=== PATIENT | male | born 1975 | race Caucasian/White ===

== ENCOUNTER 2019-06-13 11:30 | Emergency (ER) | payer OTHER ==
[2019-06-13] MEDS ORDERED: Sodium Chloride 0.9% 1,000 ML IV ONE (12:11)
[2019-06-13] MEDS ORDERED: MVI, Adult with Vitamin K 10 ML, Thiamine 100 MG, Folic Acid 1 MG, Magnesium Sulfate 3 ... IV ONE ×5 (12:12)
[2019-06-13] MEDS ORDERED: Ondansetron 4 MG/2 ML SDV IVPUSH ONE (12:15)
--- NOTE | 2019-06-13 15:35 | EDM.PDOCBH ---
ED HPI GENERAL MEDICAL PROBLEM - General Chief Complaint: Drug or Alcohol Abuse Stated Complaint: VIA [facility] AM Time Seen by Provider: 06/13/19 12:06 Source of Information: Reports: Patient History Limitations: Reports: No Limitations - History of Present Illness INITIAL COMMENTS - FREE TEXT/NARRATIVE: This patient comes in because he has been drinking heavily for the past 4 days and is been vomiting several times today. He's been to alcohol rehabilitation the last time was 4 years ago and he was actually sober until just very recently when he started drinking again. He would like to go back to detox and maybe to rehabilitation. - Related Data Allergies Allergy/AdvReac Type Severity Reaction Status Date / Time No Known Allergies Allergy Verified 06/13/19 11:42 Home Meds: Home Meds NK [No Known Home Meds] 06/13/19 [History] Past Medical History Musculoskeletal History: Reports: Fracture Psychiatric History: Reports: Addiction Other Psychiatric History: Has been through ETOH treatment x 2 - Past Surgical History GI Surgical History: Reports: EGD, Other (See Below) Other GI Surgeries/Procedures: Ulcer Social & Family History - Tobacco Use Smoking Status *Q: Current Every Day Smoker Years of Tobacco use: 12 Packs/Tins Daily: 0.5 - Recreational Drug Use Recreational Drug Use: Yes Recreational Drug Type: Reports: Methamphetamine Other Recreational Drug Type: had last this morning around 0300 ED ROS GENERAL - Review of Systems Review Of Systems: ROS reveals no pertinent complaints other than HPI. ED EXAM, BEHAVIORAL HEALTH - Physical Exam Exam: See Below Exam Limited By: No Limitations General Appearance: Alert, WD/WN, Mild Distress Eye Exam: Bilateral Eye: Normal Inspection Ears: Normal External Exam Throat/Mouth: Normal Oropharynx Head: Atraumatic Neck: Normal Inspection Respiratory/Chest: Lungs Clear Cardiovascular: Normal Peripheral Pulses, Regular Rate, Rhythm GI/Abdominal: Non-Tender Back Exam: Normal Inspection Extremities: Normal Inspection Neurological: Alert Psychiatric: Alert Skin Exam: Warm, Dry COURSE, BEHAVIORAL HEALTH COMP - Course Vital Signs: Last Vital Signs Temp 35.3 C 06/13/19 11:48 Pulse 75 06/13/19 13:52 Resp 16 06/13/19 13:52 BP 140/89 06/13/19 13:52 Pulse Ox 96 06/13/19 13:52 Orders, Labs, Meds: Laboratory Tests 06/13/19 06/13/19 06/13/19 Range/Units 12:17 12:17 12:17 WBC 13.8 H (4.5-11.0) K/uL RBC 5.09 (4.30-5.90) M/uL Hgb 15.3 H (12.0-15.0) g/dL Hct 46.0 (40.0-54.0) % MCV 90 (80-98) fL MCH 30 (27-31) pg MCHC 33 (32-36) % Plt Count 240 (150-400) K/uL Neut % (Auto) 84 H (36-66) % Lymph % (Auto) 8 L (24-44) % Wright % (Auto) 6 (2-6) % Eos % (Auto) 1 L (2-4) % Baso % (Auto) 0 (0-1) % Sodium 141 (140-148) mmol/L Potassium 3.8 (3.6-5.2) mmol/L Chloride 102 (100-108) mmol/L Carbon Dioxide 26 (21-32) mmol/L Anion Gap 13.5 (5.0-14.0) mmol/L BUN 9 (7-18) mg/dL Creatinine 1.0 (0.8-1.3) mg/dL Est Cr Clr Drug Dosing 111.88 mL/min Estimated GFR (MDRD) > 60 (>60) Glucose 110 H (74-106) mg/dL Calcium 8.6 (8.5-10.1) mg/dL Total Bilirubin 0.9 (0.2-1.0) mg/dL AST 28 (15-37) U/L ALT 60 (12-78) U/L Alkaline Phosphatase 107 (46-116) U/L Total Protein 7.3 (6.4-8.2) g/dL Albumin 3.9 (3.4-5.0) g/dL Globulin 3.4 (2.3-3.5) g/dL Albumin/Globulin Ratio 1.1 L (1.2-2.2) Urine Opiates Screen (NEGATIVE) Ur Oxycodone Screen (NEGATIVE) Urine Methadone Screen (NEGATIVE) Ur Propoxyphene Screen (NEGATIVE) Ur Barbiturates Screen (NEGATIVE) Ur Tricyclics Screen (NEGATIVE) Ur Phencyclidine Scrn (NEGATIVE) Ur Amphetamine Screen (NEGATIVE) U Methamphetamines Scrn (NEGATIVE) Urine MDMA Screen (NEGATIVE) U Benzodiazepines Scrn (NEGATIVE) U Cocaine Metab Screen (NEGATIVE) U Marijuana (THC) Screen (NEGATIVE) Ethyl Alcohol < 3 mg/dL 06/13/19 Range/Units 13:52 WBC (4.5-11.0) K/uL RBC (4.30-5.90) M/uL Hgb (12.0-15.0) g/dL Hct (40.0-54.0) % MCV (80-98) fL MCH (27-31) pg MCHC (32-36) % Plt Count (150-400) K/uL Neut % (Auto) (36-66) % Lymph % (Auto) (24-44) % Wright % (Auto) (2-6) % Eos % (Auto) (2-4) % Baso % (Auto) (0-1) % Sodium (140-148) mmol/L Potassium (3.6-5.2) mmol/L Chloride (100-108) mmol/L Carbon Dioxide (21-32) mmol/L Anion Gap (5.0-14.0) mmol/L BUN (7-18) mg/dL Creatinine (0.8-1.3) mg/dL Est Cr Clr Drug Dosing mL/min Estimated GFR (MDRD) (>60) Glucose (74-106) mg/dL Calcium (8.5-10.1) mg/dL Total Bilirubin (0.2-1.0) mg/dL AST (15-37) U/L ALT (12-78) U/L Alkaline Phosphatase (46-116) U/L Total Protein (6.4-8.2) g/dL Albumin (3.4-5.0) g/dL Globulin (2.3-3.5) g/dL Albumin/Globulin Ratio (1.2-2.2) Urine Opiates Screen Negative (NEGATIVE) Ur Oxycodone Screen Negative (NEGATIVE) Urine Methadone Screen Negative (NEGATIVE) Ur Propoxyphene Screen Negative (NEGATIVE) Ur Barbiturates Screen Negative (NEGATIVE) Ur Tricyclics Screen Negative (NEGATIVE) Ur Phencyclidine Scrn Negative (NEGATIVE) Ur Amphetamine Screen Negative (NEGATIVE) U Methamphetamines Scrn Presumptive positive H (NEGATIVE) Urine MDMA Screen Negative (NEGATIVE) U Benzodiazepines Scrn Negative (NEGATIVE) U Cocaine Metab Screen Negative (NEGATIVE) U Marijuana (THC) Screen Negative (NEGATIVE) Ethyl Alcohol mg/dL Medications Discontinued Medications Generic Name Dose Route Start Last Admin Trade Name Eve PRN Reason Stop Dose Admin Multivitamins/Minerals 10 ml/ 1,017.2 mls @ 999 mls/hr 06/13/19 12:12 12:43 Thiamine HCl 100 mg/ Folic IV 06/13/19 13:13 999 mls/hr Acid 1 mg/ Magnesium Sulfate 3 ONETIME ONE Administration gm/ Sodium Chloride Sodium Chloride 1,000 mls @ 999 mls/hr 06/13/19 12:11 06/13/19 12:39 Normal Saline IV 06/13/19 13:11 999 mls/hr .BOLUS ONE Administration Ondansetron HCl 4 mg 06/13/19 12:15 06/13/19 12:45 Zofran IVPUSH 06/13/19 12:16 4 mg ONETIME ONE Administration Re-Assessment/Re-Exam: This patient received a banana bag and when liter of IV normal saline. He also received some IV Zofran. At time of discharge he feels much better. He is medically cleared for detox and he will be going to [facility] very shortly Departure - Departure Time of Disposition: 15:34 Disposition: DC/Tfer to Other Condition: Fair Clinical Impression: Alcohol abuse - Discharge Information Referrals: PCP,None [Primary Care Provider] - Additional Instructions: This patient is medically cleared for admission to [facility] for alcohol detox
== END 2019-06-13 16:36 | disposition other institution (70) ==
LOC: JP.ED 11:30
DX: F10.10 Alcohol abuse, uncomplicated (principal); Y90.0 Blood alcohol level of less than 20 mg/100 ml; F17.210 Nicotine dependence, cigarettes, uncomplicated
CPT/HCPCS: 36415; 80053; 80305; 85025; 96365; 96375; 99284; G0480; J2405; J3411; J3475; J7030; J3490

== ENCOUNTER 2023-05-07 07:34 | Day surgery (SDC) | payer MEDICAID ==
[~2023-05-07 07:34] MED LIST: Sodium Chloride 0.9% 1,000 ML IV SCH
[2023-05-07] MEDS ORDERED: Sodium Chloride 0.9% 1,000 ML IV SCH (07:45)
[2023-05-07] MEDS ORDERED: Midazolam 1 MG/ML 2 ML SDV ONE (07:59)
[2023-05-07] MEDS ORDERED: Propofol 200 MG/20 ML SDV ONE (07:59)
[2023-05-07] MEDS ORDERED: fentaNYL 100 MCG/2 ML SDV ONE (07:59)
== END 2023-05-07 09:52 | disposition home or self-care (01) ==
LOC: JP.SDS 07:34
PROVIDERS: ATTEND Surgery
DX: Z12.11 Encounter for screening for malignant neoplasm of colon (principal); F17.200 Nicotine dependence, unspecified, uncomplicated; Z79.899 Other long term (current) drug therapy
CPT/HCPCS: 45378; J2250; J2704; J3010; J7030

== ENCOUNTER 2024-07-05 21:20 | Emergency (ER) | payer MEDICARE, MEDICAID ==
[2024-07-05] MEDS: Ketorolac 30 MG/ML SDV IM ONE (22:37)
[2024-07-05] MEDS: Ondansetron 4 MG Tab.DIS PO ONE (22:37)
== END 2024-07-05 23:25 | disposition home or self-care (01) ==
LOC: JP.ED 21:20
DX: R22.0 Localized swelling, mass and lump, head (principal); R11.0 Nausea; F17.210 Nicotine dependence, cigarettes, uncomplicated; Z91.048 Other nonmedicinal substance allergy status; Z79.899 Other long term (current) drug therapy
CPT/HCPCS: 96372; 99283; J1885; Q0162